=== PATIENT | female | born 1945 | race Caucasian/White ===

== ENCOUNTER 2018-03-28 10:22 | Observation (INO) | payer OTHER, MEDICARE ==
[~2018-03-28] VITALS: Ht 162.6 cm; Wt 55.4 kg
[~2018-03-28 10:22] MED LIST: ASPIR 8181 M1 PO; DAILY VALUE1 EACH PO; FISH OIL300 MG PO; NEXIUM40 MG PO; RED YEAST RICE600 MG PO; SERTRALINE HCL50 MG PO; XANAX0.5 MG PO
[2018-03-28 11:51] LABS: BASOPHIL (%) 0.4 % (0-1); EOSINOPHIL (%) 0.7 % (0-5); EOSINOPHIL COUNT 0.1 K/uL (0-0.3); HEMATOCRIT 37.9 % (36.0-46.0); HEMOGLOBIN 12.9 G/DL (11.9-15.5); IMMATURE GRANULOCYTE (%) 0.1 % (0.0-0.7); LYMPHOCYTE (%) 22.1 % (15-42); LYMPHOCYTE COUNT 1.6 K/uL (1.0-2.8); MCH 31.5 PG (29.0-34.0); MCV 92.4 FL (83-99); MONOCYTE COUNT 0.6 K/uL (0-0.8); NEUTROPHIL (%) 68.7 % (45-76); NEUTROPHIL COUNT 4.9 K/uL (1.8-6.4); PLATELET COUNT 263 K/uL (156-360); RBC DIS.WIDTH-SD 40.8 % (39-53); WHITE BLOOD COUNT 7.1 K/uL (4.1-10.2)
[2018-03-28 12:00] LABS: PTT 26.8 SEC (25-37)
[2018-03-28 12:03] LABS: CHLORIDE 109 mEq/L (99-109); POTASSIUM 3.8 mEq/L (3.7-5.4); SODIUM 141 mEq/L (136-147)
[2018-03-28 12:04] LABS: GLUCOSE 104 mg/dL (70-99)
[2018-03-28 12:08] LABS: CREATININE 0.7 mg/dL (0.6-1.3); GFR ESTIMATE (CALCULATED) > 59 mL/min/
[2018-03-28 12:09] LABS: UREA NITROGEN (BUN) 13 mg/dL (9-23)
[2018-03-28 12:12] LABS: TROP-I INTERPRETATION NEGATIVE; TROPONIN-I < 0.01 ng/mL (0.0-0.30)
[2018-03-28] MEDS ORDERED: MIRALAX255 GM PO (15:42)
[2018-03-28] MEDS ORDERED: SYNTHROID75 MCG PO (15:42)
[2018-03-28] MEDS ORDERED: AMLODIPINE BESYL5 MG PO (15:43)
[2018-03-28] MEDS ORDERED: CRESTOR5 MG PO (15:43)
[2018-03-28 16:03] LABS: HDL CHOLESTEROL 38 MG/DL (Desirable>=50); LDL CHOLESTEROL 84 mg/dL (Desirable<100); NON-HDL CHOLESTEROL 111 mg/dL (Desirable<160); TOTAL CHOLESTEROL 149 mg/dL (Desirable<200); TRIGLYCERIDES 134 MG/DL (Normal: <150)
[2018-03-28 16:20] LABS: THYROTROPIN (TSH) 1.1 MIU/L (0.4-5.5)
[2018-03-28 16:39] VITALS: BP 134/88
[2018-03-28 18:41] LABS: TROP-I INTERPRETATION NEGATIVE; TROPONIN-I < 0.01 ng/mL (0.0-0.30)
[2018-03-28 19:30] VITALS: BP 111/59
[2018-03-29 00:39] VITALS: BP 131/66
[2018-03-29 01:48] LABS: TROP-I INTERPRETATION NEGATIVE; TROPONIN-I < 0.01 ng/mL (0.0-0.30)
[2018-03-29 04:10] VITALS: BP 111/62
[2018-03-29 05:00] LABS: HEMOGLOBIN 12.7 G/DL (11.9-15.5); MCH 31.1 PG (29.0-34.0); MCHC 33.4 G/DL (30.0-36.0); MCV 93.1 FL (83-99); PLATELET COUNT 259 K/uL (156-360); RBC DIS.WIDTH-CV 12.4 % (11.8-14.6); RBC DIS.WIDTH-SD 42.5 % (39-53); RED BLOOD COUNT 4.08 M/uL (3.80-5.20); WHITE BLOOD COUNT 6.1 K/uL (4.1-10.2)
[2018-03-29 05:24] LABS: CHLORIDE 107 MEQ/L (99-109); CREATININE 0.8 MG/DL (0.6-1.3); GFR ESTIMATE (CALCULATED) > 59 mL/min/; GLUCOSE 97 mg/dL (70-99); POTASSIUM 4.3 MEQ/L (3.7-5.4); SODIUM 142 MEQ/L (136-147); UREA NITROGEN (BUN) 14 mg/dL (9-23)
[2018-03-29 08:17] VITALS: BP 144/67
[2018-03-29] MEDS ORDERED: ASPIR-LOW81 MG PO (08:58)
[2018-03-29] MEDS ORDERED: ALPRAZOLAM0.5 MG PO (08:58)
[2018-03-29] MEDS ORDERED: NITROSTAT0.4 MG SL (08:58)
[2018-03-29] MEDS ORDERED: PANTOPRAZOLE SO40 MG PO (08:58)
[2018-03-29] MEDS ORDERED: AMLODIPINE BESY10 MG PO (08:58)
== END 2018-03-29 11:26 | disposition home or self-care (01) ==
LOC: EME 10:22 → 4SOUTH 15:03 → EDOF 15:03 → ENRESERV 15:10 → 4SOUTH 16:27
PROVIDERS: Emergency Medicine; Internal Medicine
DX: R07.9 Chest pain, unspecified (principal); I20.8 Other forms of angina pectoris; I10 Essential (primary) hypertension; E78.5 Hyperlipidemia, unspecified; E89.0 Postprocedural hypothyroidism; R06.02 Shortness of breath; R42 Dizziness and giddiness; R51 Headache; R11.0 Nausea; R68.81 Early satiety; Z90.49 Acquired absence of other specified parts of digestive tract; Z82.49 Family history of ischemic heart disease and other diseases of the circulatory system; Z83.3 Family history of diabetes mellitus; Z84.1 Family history of disorders of kidney and ureter; Z82.0 Family history of epilepsy and other diseases of the nervous system; Z79.82 Long term (current) use of aspirin
CPT/HCPCS: 70450; 71045; 80048; 80061; 84443; 84484; 85025; 85027; 85610; 85730; 93005; 99281; 99285; G0378; J1650